=== PATIENT | female | born 2000 | race Caucasian/White ===

== ENCOUNTER 2020-05-12 00:59 | Observation (INO) | payer OTHER, SELFPAY ==
[2020-05-12] MEDS ORDERED: Fentanyl 100 MCG/2 ML VIAL ONE (01:26)
[2020-05-12] MEDS ORDERED: Boostrix 0.5 ML (Tdap) VIAL ONE (01:45)
[2020-05-12] MEDS ORDERED: Bacitracin 1 PK ONE (02:03)
[2020-05-12] MEDS ORDERED: Dextrose 5% in Water 1,000 ML IV PRN (03:00)
[2020-05-12] MEDS ORDERED: Sodium Chloride 0.9% 1,000 ML IV SCH (03:00)
[2020-05-12] MEDS ORDERED: Dextrose 50% Abboject 50 ML SYRINGE SLOW IVP PRN (03:00)
[2020-05-12] MEDS ORDERED: traMADol HCl 50 MG TAB PO PRN ×2 (03:00)
[2020-05-12] MEDS ORDERED: Ondansetron ODT 4 MG TAB PO PRN (03:00)
[2020-05-12] MEDS ORDERED: Cyclobenzaprine 10 MG TAB PO PRN (03:00)
[2020-05-12] MEDS ORDERED: Ondansetron PF 4 MG/2 ML Vial IVP PRN (03:00)
[2020-05-12] MEDS ORDERED: Ketorolac Tromethamine 30 MG/ML VIAL IVP SCH (03:00)
[2020-05-12] MEDS: Acetaminophen 500 MG TAB PO SCH ×3 (03:42→15:33)
[2020-05-12] MEDS: Ibuprofen 800 MG TAB PO SCH ×3 (03:43→15:34)
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
[2020-05-12] MEDS ORDERED: Sodium Chloride 0.9% 500 ML IV SCH (04:00)
[2020-05-12 04:52] LABS: Hemoglobin 9.9 g/dL (12.0-16.0); Mean Corpuscular HGB CONC 32.6 g/dL (32.0-36.0); Mean Corpuscular Hemoglobin 26.9 pg (27.0-31.0); Mean Corpuscular Volume 82.5 fL (78.0-98.0); Mean Platelet Volume 9.3 fL (7.4-10.4); Platelet Count 201 thou/uL (130-400); Red Blood Cell (RBC) Count 3.66 mill/uL (4.20-5.40); White Blood Cell (WBC) Count 18.2 thou/uL (4.8-10.8)
[2020-05-12 04:57] VITALS: BMI 23.1
[2020-05-12 04:59] LABS: BHCG - Serum Negative (NEGATIVE); Pregs Control Background? CLEAR/WHITE (CLR/WHITE); Pregs Control Bar Appear? YES (CONTROL BAR)
[2020-05-12 05:01] LABS: Amphetamine Not Detected (NotDetected); Barbiturates Screen Not Detected (NotDetected); Benzodiazepine Screen Not Detected (NotDetected); Cocaine Metabolite Screen Not Detected (NotDetected); Medtox Control Line Valid? VALID (VALID); Medtox Reader # READER 4; Methadone Not Detected (NotDetected); Methamphetamine Not Detected (NotDetected); Opiate Screen Not Detected (NotDetected); Oxycodone Screen Not Detected (NotDetected); Phencyclidine (PCP) Not Detected (NotDetected); THC/Cannabinoid Screen Not Detected (NotDetected); Tricyclic Screen Not Detected (NotDetected)
[2020-05-12 05:03] LABS: Anion Gap 14 mmol/L (10-20); BUN (Urea Nitrogen) 7 mg/dL (7.0-18.7); Calc. Creatinine Clearance 123 mL/min (70-130); Carbon Dioxide 21 mmol/L (22-29); Chloride 108 mmol/L (98-107); Glucose 123 mg/dL (70-105); Magnesium 1.8 mg/dL (1.6-2.6); Phosphorus 2.9 mg/dL (2.3-4.7); Potassium 3.6 mmol/L (3.5-5.1); Sodium 139 mmol/L (136-145)
[2020-05-12 05:10] LABS: Band 14 % (5-11); Lymphocytes 7 % (21-51); MDiff Complete? YES; Monocytes 10 % (0-10); Neutrophil 69 % (42-75)
--- NOTE | 2020-05-12 08:46 | RAD ---
AP CHEST: HISTORY: Chest pain, shortness of breath.\ COMPARISON: 01/25/2018. FINDINGS: Lungs are clear. Heart and mediastinum appear normal. Vasculature normal. IMPRESSION: No acute process. POS: AGW
[2020-05-12] MEDS ORDERED: Famotidine 20 MG TAB PO SCH (09:00)
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
[2020-05-12 10:20] LABS: SARS-CoV-2 MS2 Positive; SARS-CoV-2 N Gene Negative; SARS-CoV-2 S Gene Negative; SARS-CoV-2 by NAA Not Detected (NotDetected); SARS-CoV-2 orf1ab Negative
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
[2020-05-12 12:15] VITALS: BP 110/63; TEMP 98.4
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
== END 2020-05-12 16:31 | disposition home or self-care (01) ==
LOC: ERS 00:59 → EDSTATUS 01:07 → SURG A 02:15
PROVIDERS: ADMIT Surgery; ATTEND Surgery
DX: S41.032A Puncture wound without foreign body of left shoulder, initial encounter (principal); S21.032A Puncture wound without foreign body of left breast, initial encounter; Z20.828 Contact with and (suspected) exposure to other viral communicable diseases; W32.0XXA Accidental handgun discharge, initial encounter
CPT/HCPCS: 36415; 71045; 71250; 80048; 80306; 83735; 84100; 84703; 85025; 87635; 90471; 90715; 93005; 96374; 96375; G0378; G0390; J1885; J3010; U0003